=== PATIENT | female | born 2000 | race Caucasian/White ===

== ENCOUNTER 2023-11-29 12:40 | Outpatient (CLI) | payer MEDICAID, SELFPAY | END 2023-11-29 12:41 | disposition home or self-care (01) | PROVIDERS: PCP Family Medicine; Visit Provider Family Medicine | DX: M25.50 Pain in unspecified joint (principal); R10.9 Unspecified abdominal pain; E27.9 Disorder of adrenal gland, unspecified | CPT/HCPCS: 80053; 80061; 82306; 84443; 86039; 86431 ==